=== PATIENT | male | born 1990 | race Caucasian/White ===

== ENCOUNTER 2017-01-09 15:32 | Emergency (ER) | payer SELFPAY ==
[2017-01-09] MEDS ORDERED: cefTRIAXone SODIUM 1 GM VIAL IM ONE (16:44)
[2017-01-09] MEDS ORDERED: AZITHROMYCIN 250 MG TAB PO ONE (16:44)
[2017-01-09] MEDS ORDERED: CIPROFLOXACIN 500 MG TAB PO ONE (16:44)
--- NOTE | 2017-01-09 16:52 | ED.PDOC ---
History of Present Illness - General Chief Complaint: Problem Stated Complaint: Dysuria, purulent discharge, cloudy urine x3-4 wks Time Seen by Provider: 01/09/17 15:48 Source: patient Exam Limitations: no limitations - History of Present Illness Initial Comments: the patient a 26-year-old male presenting to the emergency room secondary todysuria and frequencyfor the last month along with a mild amount of penile discharge. No external lesions. He did apparently have intercourse with a different person about a month ago. Timing/Duration: unsure Severity: moderate Improving Factors: nothing Worsening Factors: nothing Associated Symptoms: denies symptoms Allergies/Adverse Reactions: Allergies NO KNOWN ALLERGY Allergy (Verified 01/09/17 15:47) Home Medications: Ambulatory Orders Ciprofloxacin [Cipro] 500 mg PO BID #14 tab 01/09/17 Review of Systems - Review of Systems Constitutional: States: malaise EENTM: States: no symptoms reported Respiratory: States: no symptoms reported Cardiology: States: no symptoms reported Gastrointestinal/Abdominal: States: no symptoms reported Genitourinary: States: discharge, dysuria, frequency Musculoskeletal: States: no symptoms reported Skin: States: no symptoms reported Neurological: States: no symptoms reported Endocrine: States: no symptoms reported All other Systems: No Change from Baseline Past Medical History (General) - Patient Medical History Hx Stroke: No Hx Congestive Heart Failure: No Hx Diabetes: No Hx Cancer: No Hx Hepatitis C: No Surgical History: no surgical history - Vaccination History Hx Tetanus, Diphtheria Vaccination: No Hx Influenza Vaccination: No - Social History Hx Tobacco Use: No Hx Chewing Tobacco Use: No Hx Alcohol Use: Yes - Occas Hx Substance Use: No Hx Substance Use Treatment: No Hx Depression: No Feels Threatened In Home Enviroment: No Feels Threatened In a Relationship: No Hx Physical Abuse: No Hx Emotional Abuse: No Hx Suspected Abuse: No Family Medical History - Family History Grandparents Family History: Unknown Physical Exam - Physical Exam General Appearance: Alert, Comfortable, No apparent distress Eye Exam: bilateral normal Ears, Nose, Throat: hearing grossly normal, normal ENT inspection, normal pharynx Neck: supple Respiratory: no respiratory distress, no accessory muscle use Cardiovascular/Chest: normal peripheral pulses, no edema Peripheral Pulses: radial,right: 2+, radial,left: 2+ Gastrointestinal/Abdominal: non tender, soft Rectal Exam: deferred Back Exam: normal inspection Extremity: normal range of motion, non-tender, normal inspection, no pedal edema Neurologic: alert, normal mood/affect, oriented x 3 Skin Exam: normal color Comments: Vital Signs - 24 hr 01/09/17 15:35 Temperature 98.2 F Pulse Rate [L 80 Arm] Respiratory 16 Rate Blood Pressure 150/82 [L Arm] O2 Sat by Pulse 97 Oximetry Progress - Progress Progress: 01/09/17 16:50 the patient's a 26-year-old male presenting with symptoms of dysuria and penile discharge for rather extended period of time. His urinalysis is not clear. The gonorrhea and chlamydia tests are sent off test and he does need to check back next week for the results. The patient is being treated empirically with Rocephin and azithromycin and will be on ciprofloxacin twice daily for 1 week. The patient does need a test of cure in 2 weeks. He should also follow up with Public health Department or family planning for comprehensive STD check in 1-2 months. ER warnings were given. - EKG/XRAY/CT CT Ordered: No CT Interpretation Call Back: No Departure - Departure Clinical Impression: Urethritis Disposition: Discharge to Home or Self Care Condition: Fair Departure Forms: ED Discharge - Pt. Copy, Patient Portal Self Enrollment Instructions: DI for Urethritis Diet: regular diet Activity: increase activity as tolerated, other - no intercourse Prescriptions: Ciprofloxacin [Cipro] 500 mg PO BID #14 tab Home Medications: Ambulatory Orders Ciprofloxacin [Cipro] 500 mg PO BID #14 tab 01/09/17 Additional Instructions: the patient's a 26-year-old male presenting with symptoms of dysuria and penile discharge for rather extended period of time. His urinalysis is not clear. The gonorrhea and chlamydia tests are sent off test and he does need to check back next week for the results. The patient is being treated empirically with Rocephin and azithromycin and will be on ciprofloxacin twice daily for 1 week. The patient does need a test of cure in 2 weeks. He should also follow up with Public health Department or family planning for comprehensive STD check in 1-2 months. ER warnings were given.
[2017-01-09 17:27] VITALS: BP 152/90; TEMP 97.6; O2SAT 98
== END 2017-01-09 17:20 | disposition home or self-care (01) ==
LOC: ER 15:32
DX: N34.2 Other urethritis (principal)
CPT/HCPCS: 81001; 87086; 87491; 87591; J0696; Q0144